=== PATIENT | female | born 1935 | race African-American/Black ===

== ENCOUNTER 2016-09-13 14:41 | Emergency (ER) | payer MEDICARE ==
[2016-09-13 14:59] VITALS: TEMP 96
[2016-09-13] MEDS ORDERED: ACETAMINOPHEN 500 MG TAB PO ONE (16:40)
--- NOTE | 2016-09-13 16:45 | ED.PDOC ---
History of Present Illness - General Chief Complaint: General Stated Complaint: having difficulty walking Time Seen by Provider: 09/13/16 15:00 Source: patient, family Exam Limitations: no limitations Additional Information: PT C/O WORSENING WEAKNESS OF BL LEGS. DENIES ANY PAIN SX. STATES HER LEGS FEEL "HEAVY". SON EXPLAINS SHE HAS PARKINSONS [place] AND HE THINKS IT IS JUST THE PARKINSONS WORSENING. AMBULATES W/ WALKER AT HOME; WHEELCHAIR IN PUBLIC. DENIES ANY RECENT FALLS OR TRAUMA. HAS HOME HEALTH P.T. - History of Present Illness Timing/Duration: constant Severity: moderate Improving Factors: nothing Worsening Factors: nothing Associated Symptoms: denies symptoms Allergies/Adverse Reactions: Allergies Atorvastatin [From Lipitor] Allergy (Verified 03/21/16 07:27) Lincomycin Allergy (Verified 09/13/16 14:59) Penicillin G Allergy (Verified 03/21/16 07:27) Shortness of Breath Home Medications: Ambulatory Orders Losartan Potassium & Hydrochlo [Hyzaar 100-12.5 mg] 100 mg PO DAILY 02/06/14 Metoprolol Tartrate 50 mg PO BIDFD 02/06/14 Clopidogrel Bisulfate [Plavix] 75 mg PO QD 09/12/14 Lovastatin [Mevacor] 20 mg PO BEDTIME 09/12/14 Omeprazole 20 mg PO ACBK 09/12/14 amLODIPine BESYLATE [Norvasc] 5 mg PO DAILY 09/12/14 Hctz 25 mg/Triamterene 37.5 mg [Dyazide-25] 1 ea PO DAILY 09/14/14 Aspirin [Baby Aspirin] 81 mg PO DAILY 05/22/15 Acetaminophen [Tylenol] 650 mg PO Q4H PRN 10/14/15 Furosemide [Lasix] 40 mg PO DAILY PRN 10/14/15 Potassium Chloride [Micro-K] 10 meq PO DAILY PRN 10/14/15 glipiZIDE EXTENDED REL (XL) [Glucotrol XL] 2.5 mg PO QDBK 10/14/15 Spironolactone [Aldactone] 25 mg PO DAILY #30 tab 12/07/15 Ampicillin 500 mg PO TID #30 cap 03/21/16 Polyethylene Glycol 3350 [Miralax] 17 gm PO QDAC #10 pckt 03/21/16 Review of Systems - Review of Systems Constitutional: States: weakness. Denies: chills, fever, malaise EENTM: States: ear pain - OCCAS R EAR, IMPROVED W/ 1 TYLENOL. . Denies: eye pain, throat pain Respiratory: States: no symptoms reported Cardiology: States: no symptoms reported Gastrointestinal/Abdominal: States: no symptoms reported Genitourinary: States: no symptoms reported. Denies: dysuria, frequency, pain Musculoskeletal: Denies: back pain, joint pain, muscle pain, neck pain Skin: States: no symptoms reported Neurological: States: tremors, weakness. Denies: headache, numbness, paresthesia, tingling Endocrine: States: no symptoms reported Hematologic/Lymphatic: States: no symptoms reported All other Systems: Reviewed and Negative Past Medical History (General) - Patient Medical History Hx Seizures: No Hx Stroke: No Hx Dementia: Yes Hx Asthma: No Hx of COPD: No Hx Cardiac Disorders: Yes - PVD Hx Congestive Heart Failure: Yes Hx Pacemaker: No Hx Hypertension: Yes Hx Diabetes: Yes Hx Gastroesophageal Reflux: Yes Hx MRSA: No MRSA Source:: Wound Surgical History: Hysterectomy - Vaccination History Hx Tetanus, Diphtheria Vaccination: No Hx Influenza Vaccination: Yes Hx Pneumococcal Vaccination: Yes - Social History Hx Tobacco Use: No Hx Alcohol Use: No Hx Substance Use: No Hx Substance Use Treatment: No Hx Depression: No Hx Physical Abuse: No Hx Emotional Abuse: No - Female History Patient : No Family Medical History - Family History Father Living Status: Age at (years of age): 58 Cause of : lung CA Hx Family Cancer: Yes - lung Mother Family History: Unknown Living Status: Age at (years of age): 89 Cause of : COPD Hx Family Asthma: No Hx Family Congestive Heart Failure: Yes Age of Onset (years of age): 70 Hx Family Hypertension: No Hx Family Stroke: No Hx Cardiac Disease: Yes Age of Onset (years of age): 70 Hx Family Diabetes: No Hx Family Cancer: No Hx Family;Other: emphysema Physical Exam - Physical Exam General Appearance: Comfortable, Well Developed, Well Hydrated, Well Nourished Eye Exam: bilateral normal Ears, Nose, Throat: hearing grossly normal, normal ENT inspection, normal pharynx Neck: non-tender, supple Respiratory: chest non-tender, lungs clear, normal breath sounds, no respiratory distress Cardiovascular/Chest: normal peripheral pulses, regular rate, rhythm Peripheral Pulses: radial,right: 2+, radial,left: 2+ Gastrointestinal/Abdominal: normal bowel sounds, non tender, soft Back Exam: normal inspection, no CVA tenderness, no vertebral tenderness Extremity: non-tender, normal inspection, other - POS BL RIGIDITY. Neurologic: biomedical engineer II-XII nml as tested, normal mood/affect, oriented x 3, other - POS R RESTING TREMOR. DTR: 3+: Patellar, left, Patellar, right Skin Exam: normal color Lymphatic: no adenopathy Progress - Progress Progress: 09/13/16 16:51 CBC, CMP, UA DO NOT ACCOUNT FOR HER INCREASING MUSCULAR /GAIT WEAKNESS. THERE IS NO CLINICAL EVIDENCE OR HISTORY TO SUGGEST A STROKE; RATHER IT APPEARS TO BE WORSENING OF HER PARKINSONS. SAFE TO DC TO HOME WITH HER SON. F/U W/ HER NEUROLOGIST. 09/13/16 16:53 09/13/16 16:54 Departure - Departure Clinical Impression: Parkinson disease, symptomatic, Weakness of both legs Disposition: Discharge to Home or Self Care Condition: Fair Departure Forms: ED Discharge - Pt. Copy, Patient Portal Self Enrollment Instructions: Parkinson's Disease, David Chi May Improve Balance in Patients with Parkinson Disease Diet: resume usual diet Activity: increase activity as tolerated Home Medications: Ambulatory Orders Losartan Potassium & Hydrochlo [Hyzaar 100-12.5 mg] 100 mg PO DAILY 02/06/14 Metoprolol Tartrate 50 mg PO BIDFD 02/06/14 Clopidogrel Bisulfate [Plavix] 75 mg PO QD 09/12/14 Lovastatin [Mevacor] 20 mg PO BEDTIME 09/12/14 Omeprazole 20 mg PO ACBK 09/12/14 amLODIPine BESYLATE [Norvasc] 5 mg PO DAILY 09/12/14 Hctz 25 mg/Triamterene 37.5 mg [Dyazide-25] 1 ea PO DAILY 09/14/14 Aspirin [Baby Aspirin] 81 mg PO DAILY 05/22/15 Acetaminophen [Tylenol] 650 mg PO Q4H PRN 10/14/15 Furosemide [Lasix] 40 mg PO DAILY PRN 10/14/15 Potassium Chloride [Micro-K] 10 meq PO DAILY PRN 10/14/15 glipiZIDE EXTENDED REL (XL) [Glucotrol XL] 2.5 mg PO QDBK 10/14/15 Spironolactone [Aldactone] 25 mg PO DAILY #30 tab 12/07/15 Ampicillin 500 mg PO TID #30 cap 03/21/16 Polyethylene Glycol 3350 [Miralax] 17 gm PO QDAC #10 pckt 03/21/16 Additional Instructions: Please follow-up with your neurologist, Dr. Anthony, for the Parkinson's disease. Please continue to work with home health physical therapy for muscular training. Try to walk as much as possible in order to maintain your strength.
[2016-09-13 17:17] VITALS: BP 109/41; O2SAT 99
== END 2016-09-13 17:17 | disposition home or self-care (01) ==
LOC: ER 14:41
DX: G20 Parkinson's disease (principal); F02.80 Dementia in other diseases classified elsewhere, unspecified severity, without behavioral disturbance, psychotic disturbance, mood disturbance, and anxiety; M62.81 Muscle weakness (generalized); Z88.0 Allergy status to penicillin; Z88.8 Allergy status to other drugs, medicaments and biological substances; I11.0 Hypertensive heart disease with heart failure; I50.9 Heart failure, unspecified; E11.9 Type 2 diabetes mellitus without complications

== ENCOUNTER 2016-09-29 11:35 | Emergency (ER) | payer MEDICARE ==
[2016-09-29] MEDS ORDERED: NITROGLYCERIN 0.4 MG 25 EA TAB SL ONE ×2 (11:58→12:13)
[2016-09-29] MEDS ORDERED: diltiaZEM DRIP 125 MG in SODIUM CHLORIDE 0.9% 100ML 100 ML IVPB SCH (12:00)
--- NOTE | 2016-09-29 12:07 | ED.PDOC ---
History of Present Illness - General Chief Complaint: Chest Pain/KS Stated Complaint: chest pain Time Seen by Provider: 09/29/16 12:01 Source: patient, RN notes reviewed, EMS notes reviewed Exam Limitations: no limitations - History of Present Illness Initial Comments: EMS stated on waking up one hour ago had onset of pressure type chest pain radiating to left arm and was sob called up ems.Has history of DM and afib. 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 Improving Factors: nothing Worsening Factors: nothing Nitro Today/Relief: 0.4 mg x 1, provided by EMS Aspirin Treatment Today: 325 mg x 1 Associated Symptoms: shortness of breath Allergies/Adverse Reactions: Allergies Atorvastatin [From Lipitor] Allergy (Verified 03/21/16 07:27) Lincomycin Allergy (Verified 09/13/16 14:59) Penicillin G Allergy (Verified 03/21/16 07:27) Shortness of Breath Home Medications: Ambulatory Orders Metoprolol Tartrate 50 mg PO BIDFD 02/06/14 Clopidogrel Bisulfate [Plavix] 75 mg PO QD 09/12/14 Lovastatin [Mevacor] 20 mg PO BEDTIME 09/12/14 Omeprazole 40 mg PO ACBK 09/12/14 Aspirin [Baby Aspirin] 81 mg PO DAILY 05/22/15 Furosemide [Lasix] 40 mg PO DAILY PRN 10/14/15 Potassium Chloride [Micro-K] 10 meq PO DAILY PRN 10/14/15 glipiZIDE EXTENDED REL (XL) [Glucotrol XL] 2.5 mg PO .NOON AND SUPPER 10/14/15 Spironolactone [Aldactone] 25 mg PO DAILY #30 tab 12/07/15 Metformin HCl [Metformin HCl ER] 500 mg PO DAILY 09/29/16 Oxybutynin Chloride 5 mg PO BEDTIME 09/29/16 Rivastigmine Tartrate 3 mg PO BID 09/29/16 Zolpidem Tartrate 10 mg PO BEDTIME 09/29/16 Review of Systems - Review of Systems Constitutional: States: no symptoms reported EENTM: States: other - -shadows only Respiratory: States: see HPI, short of breath Cardiology: States: see HPI Gastrointestinal/Abdominal: States: no symptoms reported Genitourinary: States: no symptoms reported Musculoskeletal: States: no symptoms reported Skin: States: no symptoms reported Neurological: States: other - parkinsons -right ue tremor Endocrine: States: no symptoms reported Hematologic/Lymphatic: States: no symptoms reported Past Medical History (General) - Patient Medical History Hx Seizures: No Hx Stroke: No Hx Dementia: Yes Hx Asthma: No Hx of COPD: No Hx Cardiac Disorders: Yes - PVD Hx Congestive Heart Failure: Yes Hx Pacemaker: No Hx Hypertension: Yes Hx Diabetes: Yes Hx Gastroesophageal Reflux: Yes Hx MRSA: No MRSA Source:: Wound Surgical History: appendectomy, cholecystectomy, other - ,hand-orif - Vaccination History Hx Tetanus, Diphtheria Vaccination: No Hx Influenza Vaccination: Yes Hx Pneumococcal Vaccination: Yes - Social History Hx Tobacco Use: No Hx Alcohol Use: No Hx Substance Use: No Hx Substance Use Treatment: No Hx Depression: No Hx Physical Abuse: No Hx Emotional Abuse: No - Activities of Daily Living Patient Lives Alone: No - sister Grooming Ability: Minimum Assistance Eating (Feeding) Ability: Minimum Assistance Toileting Ability: Minimum Assistance - Female History Patient : No Family Medical History - Family History Father Living Status: Age at (years of age): 58 Cause of : lung CA Hx Cardiac Disease: Yes Hx Family Diabetes: Yes Hx Family Cancer: Yes - lung Hx Family;Other: parkinsons ,dementia Mother Family History: Unknown Living Status: Age at (years of age): 89 Cause of : COPD Hx Family Asthma: No Hx Family Congestive Heart Failure: Yes Age of Onset (years of age): 70 Hx Family Hypertension: No Hx Family Stroke: No Hx Cardiac Disease: Yes Age of Onset (years of age): 70 Hx Family Diabetes: No Hx Family Cancer: No Hx Family;Other: emphysema Physical Exam - Physical Exam General Appearance: Alert, No apparent distress Eyes, Ears, Nose, Throat Exam: normal ENT inspection, TMs normal, pharynx normal , other - eyes-right:can see shadows only;left-counting fingers Neck: non-tender, full range of motion, supple, normal inspection Respiratory: chest non-tender, lungs clear, normal breath sounds, no respiratory distress Cardiovascular/Chest: normal peripheral pulses, no gallop, no JVD, no murmur, tachycardia - 145 vr Gastrointestinal/Abdominal: normal bowel sounds, non tender, soft, no organomegaly Extremity: non-tender, normal inspection, no pedal edema Neurologic: no motor/sensory deficits, alert, normal mood/affect Skin Exam: normal color, warm/dry Lymphatic: no adenopathy Progress - Results/Orders Results/Orders: 09/29/16 12:00 diltiaZEM DRIP [Cardizem Drip] 125 mg Sodium Chloride 0.9% 100Ml [NS (NACL 0.9 %) 100ml] 100 ml IVPB PRN 09/29/16 12:13 Telemetry .ONCE Sodium Chloride 0.9% (Flush) [Saline Flush Syringe] 10 ml IV PRN PRN EKG Stat Pulse Ox Stat 09/29/16 12:15 Sodium Chloride 0.9% 1000ML [Ns 1000 ml] 1,000 ml IVS ONCE Laboratory Results WBC 8.7 K/mm3 (4.8-10.8) 09/29/16 12:30 RBC 3.85 M/mm3 (4.20-5.40) L 09/29/16 12:30 Hgb 11.3 gm/dL (12.0-16.0) L 09/29/16 12:30 Hct 32.9 % (36.0-47.0) L 09/29/16 12:30 MCV 85.6 fl (81.0-99.0) 09/29/16 12:30 MCH 29.3 pg (27.0-31.0) 09/29/16 12:30 MCHC 34.3 g/dL (33.0-37.0) 09/29/16 12:30 RDW 13.2 % (11.5-14.5) 09/29/16 12:30 Plt Count 190 K/mm3 (130-400) 09/29/16 12:30 MPV 7.7 fl (7.40-10.4) 09/29/16 12:30 Absolute Neuts (auto) 5.90 K/uL (1.8-6.8) 09/29/16 12:30 Absolute Lymphs (auto) 1.70 K/uL (1.0-3.4) 09/29/16 12:30 Absolute Monos (auto) 0.70 K/uL (0.2-0.8) 09/29/16 12:30 Absolute Eos (auto) 0.20 K/uL (0.0-0.4) 09/29/16 12:30 Absolute Basos (auto) 0.10 K/uL (0.0-0.1) 09/29/16 12:30 Neutrophils % 68.2 % (42.0-78.0) 09/29/16 12:30 Lymphocytes % 20.1 % (20.0-50.0) 09/29/16 12:30 Monocytes % 8.5 % (2.0-9.0) 09/29/16 12:30 Eosinophils % 2.5 % (1.0-5.0) 09/29/16 12:30 Basophils % 0.7 % (0.0-2.0) 09/29/16 12:30 PT 11.8 SECONDS (9.4-12.5) 09/29/16 12:30 INR 1.040 09/29/16 12:30 PTT (SP) 25.5 SECONDS (25.1-36.5) 09/29/16 12:30 D-Dimer, Quantitative 298 ng/mL (0-230) H* 09/29/16 12:13 Sodium 136 mmol/L (135-145) 09/29/16 12:30 Potassium 4.0 mmol/L (3.6-5.0) 09/29/16 12:30 Chloride 100 mmol/L (101-111) L 09/29/16 12:30 Carbon Dioxide 25 mmol/L (21-31) 09/29/16 12:30 Anion Gap 15.0 (12-18) 09/29/16 12:30 BUN 37 mg/dL (7-18) H 09/29/16 12:30 Creatinine 1.78 mg/dL (0.6-1.3) H 09/29/16 12:30 BUN/Creatinine Ratio 20.8 (10-20) H 09/29/16 12:30 Random Glucose 341 mg/dL (70-105) H 09/29/16 12:30 Serum Osmolality 294.1 mOsm/L (275-295) 09/29/16 12:30 Calcium 8.7 mg/dL (8.4-10.2) 09/29/16 12:30 Magnesium 2.0 mg/dL (1.8-2.5) 09/29/16 12:30 Total Bilirubin 1.1 mg/dL (0.2-1.0) H 09/29/16 12:30 Direct Bilirubin 0.2 mg/dL (0-0.2) 09/29/16 12:30 Indirect Bilirubin 0.9 mg/dL (0.2-0.8) H 09/29/16 12:30 AST 20 IU/L (10-42) 09/29/16 12:30 ALT 14 IU/L (10-60) 09/29/16 12:30 Alkaline Phosphatase 53 IU/L (42-121) 09/29/16 12:30 Creatine Kinase 96 IU/L (26-140) 09/29/16 12:30 CK-MB (CK-2) 4.4 ng/mL (0.0-4.4) 09/29/16 12:30 CK-MB (CK-2) % Not Reportable 09/29/16 12:30 Troponin I < 0.02 ng/mL (0.01-0.05) 09/29/16 12:30 B-Natriuretic Peptide 55.1 pg/ml (0-100) 09/29/16 12:30 Serum Total Protein 6.5 gm/dL (6.4-8.2) 09/29/16 12:30 Albumin 3.4 g/dl (3.2-5.5) 09/29/16 12:30 09/29/16 12:00 diltiaZEM DRIP [Cardizem Drip] 125 mg Sodium Chloride 0.9% 100Ml [NS (NACL 0.9 %) 100ml] 100 ml IVPB PRN 09/29/16 12:13 Telemetry .ONCE Sodium Chloride 0.9% (Flush) [Saline Flush Syringe] 10 ml IV PRN PRN EKG Stat Pulse Ox Stat 09/29/16 12:15 Sodium Chloride 0.9% 1000ML [Ns 1000 ml] 1,000 ml IVS ONCE Laboratory Results WBC 8.7 K/mm3 (4.8-10.8) 09/29/16 12:30 RBC 3.85 M/mm3 (4.20-5.40) L 09/29/16 12:30 Hgb 11.3 gm/dL (12.0-16.0) L 09/29/16 12:30 Hct 32.9 % (36.0-47.0) L 09/29/16 12:30 MCV 85.6 fl (81.0-99.0) 09/29/16 12:30 MCH 29.3 pg (27.0-31.0) 09/29/16 12:30 MCHC 34.3 g/dL (33.0-37.0) 09/29/16 12:30 RDW 13.2 % (11.5-14.5) 09/29/16 12:30 Plt Count 190 K/mm3 (130-400) 09/29/16 12:30 MPV 7.7 fl (7.40-10.4) 09/29/16 12:30 Absolute Neuts (auto) 5.90 K/uL (1.8-6.8) 09/29/16 12:30 Absolute Lymphs (auto) 1.70 K/uL (1.0-3.4) 09/29/16 12:30 Absolute Monos (auto) 0.70 K/uL (0.2-0.8) 09/29/16 12:30 Absolute Eos (auto) 0.20 K/uL (0.0-0.4) 09/29/16 12:30 Absolute Basos (auto) 0.10 K/uL (0.0-0.1) 09/29/16 12:30 Neutrophils % 68.2 % (42.0-78.0) 09/29/16 12:30 Lymphocytes % 20.1 % (20.0-50.0) 09/29/16 12:30 Monocytes % 8.5 % (2.0-9.0) 09/29/16 12:30 Eosinophils % 2.5 % (1.0-5.0) 09/29/16 12:30 Basophils % 0.7 % (0.0-2.0) 09/29/16 12:30 PT 11.8 SECONDS (9.4-12.5) 09/29/16 12:30 INR 1.040 09/29/16 12:30 PTT (SP) 25.5 SECONDS (25.1-36.5) 09/29/16 12:30 D-Dimer, Quantitative 298 ng/mL (0-230) H* 09/29/16 12:13 Sodium 136 mmol/L (135-145) 09/29/16 12:30 Potassium 4.0 mmol/L (3.6-5.0) 09/29/16 12:30 Chloride 100 mmol/L (101-111) L 09/29/16 12:30 Carbon Dioxide 25 mmol/L (21-31) 09/29/16 12:30 Anion Gap 15.0 (12-18) 09/29/16 12:30 BUN 37 mg/dL (7-18) H 09/29/16 12:30 Creatinine 1.78 mg/dL (0.6-1.3) H 09/29/16 12:30 BUN/Creatinine Ratio 20.8 (10-20) H 09/29/16 12:30 Random Glucose 341 mg/dL (70-105) H 09/29/16 12:30 Serum Osmolality 294.1 mOsm/L (275-295) 09/29/16 12:30 Calcium 8.7 mg/dL (8.4-10.2) 09/29/16 12:30 Magnesium 2.0 mg/dL (1.8-2.5) 09/29/16 12:30 Total Bilirubin 1.1 mg/dL (0.2-1.0) H 09/29/16 12:30 Direct Bilirubin 0.2 mg/dL (0-0.2) 09/29/16 12:30 Indirect Bilirubin 0.9 mg/dL (0.2-0.8) H 09/29/16 12:30 AST 20 IU/L (10-42) 09/29/16 12:30 ALT 14 IU/L (10-60) 09/29/16 12:30 Alkaline Phosphatase 53 IU/L (42-121) 09/29/16 12:30 Creatine Kinase 96 IU/L (26-140) 09/29/16 12:30 CK-MB (CK-2) 4.4 ng/mL (0.0-4.4) 09/29/16 12:30 CK-MB (CK-2) % Not Reportable 09/29/16 12:30 Troponin I < 0.02 ng/mL (0.01-0.05) 09/29/16 12:30 B-Natriuretic Peptide 55.1 pg/ml (0-100) 09/29/16 12:30 Serum Total Protein 6.5 gm/dL (6.4-8.2) 09/29/16 12:30 Albumin 3.4 g/dl (3.2-5.5) 09/29/16 12:30 - EKG/XRAY/CT EKG: Atrial, Fibrillation - w/ RVR-140 XRAY: chest - mild cardiomegaly with vascular congestion Departure - Departure Clinical Impression: Atrial fibrillation with RVR, Chest pain, cardiac, Chronic renal insufficiency , stage II (mild), Diabetes mellitus type 2, uncontrolled Time of Disposition: 14:44 - D/W Dr. MENDOZA-Hospitalist SEBASTIAN Disposition: Transfer to Hospital Condition: Fair Departure Forms: ED Discharge - Pt. Copy, Patient Portal Self Enrollment Referrals: John Lafleur III, MD [Primary Care Provider] - 1-2 Weeks Home Medications: Ambulatory Orders Metoprolol Tartrate 50 mg PO BIDFD 02/06/14 Clopidogrel Bisulfate [Plavix] 75 mg PO QD 09/12/14 Lovastatin [Mevacor] 20 mg PO BEDTIME 09/12/14 Omeprazole 40 mg PO ACBK 09/12/14 Aspirin [Baby Aspirin] 81 mg PO DAILY 05/22/15 Furosemide [Lasix] 40 mg PO DAILY PRN 10/14/15 Potassium Chloride [Micro-K] 10 meq PO DAILY PRN 10/14/15 glipiZIDE EXTENDED REL (XL) [Glucotrol XL] 2.5 mg PO .NOON AND SUPPER 10/14/15 Spironolactone [Aldactone] 25 mg PO DAILY #30 tab 12/07/15 Metformin HCl [Metformin HCl ER] 500 mg PO DAILY 09/29/16 Oxybutynin Chloride 5 mg PO BEDTIME 09/29/16 Rivastigmine Tartrate 3 mg PO BID 09/29/16 Zolpidem Tartrate 10 mg PO BEDTIME 09/29/16
[2016-09-29 12:09] VITALS: TEMP 97.4
[2016-09-29] MEDS ORDERED: SODIUM CHLORIDE 0.9% 100ML 100 ML IVPB ONE (12:10)
[2016-09-29] MEDS ORDERED: diltiaZEM DRIP 125 MG/25 ML VIAL IVPB ONE (12:10)
[2016-09-29] MEDS: SODIUM CHLORIDE 0.9% 1000ML 300 ML IVS ONE ×2 (12:11→12:37)
[2016-09-29] MEDS ORDERED: ONDANSETRON INJ 4 MG/2 ML VIAL IV ONE (12:13)
[2016-09-29] MEDS ORDERED: SODIUM CHLORIDE 0.9% (FLUSH) 10 ML SYG IV PRN (12:13)
[2016-09-29] MEDS ORDERED: SODIUM CHLORIDE 0.9% 1000ML 1,000 ML IVS ONE (12:15)
--- NOTE | 2016-09-29 13:10 | RAD ---
Study: Single Frontal View of the Chest. Indication:pain Comparison: December 05, 2015. Impression: Mild cardiomegaly with mild central vascular congestion. Prominence of the main pulmonary artery which can be seen in pulmonary arterial hypertension. Mild elevation left hemidiaphragm. No overt consolidation, pleural effusion or pneumothorax. No acute osseous abnormality. Electronically signed by: Jorge Nguyen MD 09/29/2016 13:08
[2016-09-29] MEDS ORDERED: INSULIN, REG.(HUMAN) 100 U/ML VIAL SUBCU ONE (14:01)
[2016-09-29 15:22] VITALS: BP 93/58; O2SAT 95
== END 2016-09-29 15:21 | disposition short-term general hospital (02) ==
LOC: ER 11:35
DX: R07.9 Chest pain, unspecified (principal); I48.91 Unspecified atrial fibrillation; E11.22 Type 2 diabetes mellitus with diabetic chronic kidney disease; E11.65 Type 2 diabetes mellitus with hyperglycemia; N18.2 Chronic kidney disease, stage 2 (mild); I49.3 Ventricular premature depolarization; F03.90 Unspecified dementia, unspecified severity, without behavioral disturbance, psychotic disturbance, mood disturbance, and anxiety; I13.0 Hypertensive heart and chronic kidney disease with heart failure and stage 1 through stage 4 chronic kidney disease, or unspecified chronic kidney disease; I50.9 Heart failure, unspecified; Z79.899 Other long term (current) drug therapy; Z79.82 Long term (current) use of aspirin
CPT/HCPCS: 71010; 80048; 80076; 82550; 82553; 83880; 84484; 85025; 85379; 85610; 85730; 93005; 96361; 96372; 96374; 96375; 99285; J2405; J7030; J7050

== ENCOUNTER 2016-10-02 11:47 | Emergency (ER) | payer MEDICARE ==
--- NOTE | 2016-10-02 12:44 | ED.PDOC ---
History of Present Illness - General Chief Complaint: General Stated Complaint: weakness, headache Time Seen by Provider: 10/02/16 12:21 Source: patient, EMS notes reviewed - History of Present Illness Initial Comments: H/H WENT TO PT'S HOUSE. REPORTEDLY BP WAS 80'S SYSTOLIC. WHEN EMS ARRIVED, PT'S BP WAS NL. JUST ARRIVED HOME YESTERDAY FROM [place] WHERE SHE WAS HOSPITALIZED FOR AFIB. Severity: mild Improving Factors: nothing, other - RESOLVED SPONTANEOUSLY Worsening Factors: nothing Associated Symptoms: denies symptoms Allergies/Adverse Reactions: Allergies Atorvastatin [From Lipitor] Allergy (Verified 03/21/16 07:27) Lincomycin Allergy (Verified 09/13/16 14:59) Penicillin G Allergy (Verified 03/21/16 07:27) Shortness of Breath Home Medications: Ambulatory Orders Metoprolol Tartrate 50 mg PO BIDFD 02/06/14 Lovastatin [Mevacor] 20 mg PO BEDTIME 09/12/14 Omeprazole 40 mg PO ACBK 09/12/14 Furosemide [Lasix] 40 mg PO DAILY PRN 10/14/15 Potassium Chloride [Micro-K] 10 meq PO DAILY PRN 10/14/15 glipiZIDE EXTENDED REL (XL) [Glucotrol XL] 2.5 mg PO .NOON AND SUPPER 10/14/15 Spironolactone [Aldactone] 25 mg PO DAILY #30 tab 12/07/15 Metformin HCl [Metformin HCl ER] 500 mg PO DAILY 09/29/16 Oxybutynin Chloride 5 mg PO BEDTIME 09/29/16 Rivastigmine Tartrate 3 mg PO BID 09/29/16 Apixaban [Eliquis] 2.5 mg PO BID 10/02/16 Ciprofloxacin [Cipro] 500 mg PO BID 10/02/16 Digoxin 0.125 mg PO DAILY 10/02/16 Review of Systems - Review of Systems Constitutional: Denies: chills, fever EENTM: States: blurred vision, ear pain Respiratory: Denies: cough, short of breath, wheezing Cardiology: Denies: chest pain, palpitations Gastrointestinal/Abdominal: Denies: abdominal pain, diarrhea, nausea, vomiting Genitourinary: States: no symptoms reported Musculoskeletal: States: no symptoms reported Skin: States: no symptoms reported Neurological: States: no symptoms reported Endocrine: States: no symptoms reported Hematologic/Lymphatic: States: no symptoms reported Past Medical History (General) - Patient Medical History Hx Seizures: No Hx Stroke: No Hx Dementia: Yes Hx Asthma: No Hx of COPD: No Hx Cardiac Disorders: Yes - PVD, A fib Hx Congestive Heart Failure: Yes Hx Pacemaker: No Hx Hypertension: Yes Hx Diabetes: Yes Hx Gastroesophageal Reflux: Yes Hx MRSA: No MRSA Source:: Wound - Vaccination History Hx Tetanus, Diphtheria Vaccination: No Hx Influenza Vaccination: Yes Hx Pneumococcal Vaccination: Yes - Social History Hx Tobacco Use: No Hx Alcohol Use: No Hx Substance Use: No Hx Substance Use Treatment: No Hx Depression: No Hx Physical Abuse: No Hx Emotional Abuse: No - Activities of Daily Living Hospice Agency (if applicable):: [facility] - Female History Patient is a Female of Child Bearing Age (10 -59 yrs old): No Patient : No Family Medical History - Family History Father Living Status: Age at (years of age): 58 Cause of : lung CA Hx Cardiac Disease: Yes Hx Family Diabetes: Yes Hx Family Cancer: Yes - lung Hx Family;Other: parkinsons ,dementia Mother Family History: Unknown Living Status: Age at (years of age): 89 Cause of : COPD Hx Family Asthma: No Hx Family Congestive Heart Failure: Yes Age of Onset (years of age): 70 Hx Family Hypertension: No Hx Family Stroke: No Hx Cardiac Disease: Yes Age of Onset (years of age): 70 Hx Family Diabetes: No Hx Family Cancer: No Hx Family;Other: emphysema Physical Exam - Physical Exam General Appearance: Alert, No apparent distress Eye Exam: bilateral normal Ears, Nose, Throat: normal ENT inspection, normal pharynx Neck: non-tender, full range of motion, supple Respiratory: lungs clear, normal breath sounds, no respiratory distress Cardiovascular/Chest: regular rate, rhythm, no edema, no murmur Gastrointestinal/Abdominal: non tender, soft, no organomegaly Back Exam: normal inspection, no CVA tenderness Extremity: normal range of motion, non-tender Neurologic: no motor/sensory deficits, alert Skin Exam: normal color Lymphatic: no adenopathy Progress - Progress Progress: 10/02/16 12:56 BP CURRENTLY NL 10/02/16 14:45 VSS HAVE BEEN STABLE. BP GOOD. FOREST SCIENTIST HAS SEEN PT WILL BE EVALUATED FOR REHAB TOMORROW AT HOME. - EKG/XRAY/CT Comments: RHYTHM STRIP, AFIB RATE 75 Departure - Departure Clinical Impression: DEMENTIA Atrial fibrillation Qualifiers: Atrial fibrillation type: chronic Qualifier Code: (I48.2) Chronic atrial fibrillation Hypertension Qualifiers: Hypertension type: essential hypertension Qualifier Code: (I10) Essential ( primary) hypertension Time of Disposition: 14:50 Disposition: Discharge to Home or Self Care Condition: Good Departure Forms: ED Discharge - Pt. Copy, Patient Portal Self Enrollment Instructions: DI for Hypotension Home Medications: Ambulatory Orders Metoprolol Tartrate 50 mg PO BIDFD 02/06/14 Lovastatin [Mevacor] 20 mg PO BEDTIME 09/12/14 Omeprazole 40 mg PO ACBK 09/12/14 Furosemide [Lasix] 40 mg PO DAILY PRN 10/14/15 Potassium Chloride [Micro-K] 10 meq PO DAILY PRN 10/14/15 glipiZIDE EXTENDED REL (XL) [Glucotrol XL] 2.5 mg PO .NOON AND SUPPER 10/14/15 Spironolactone [Aldactone] 25 mg PO DAILY #30 tab 12/07/15 Metformin HCl [Metformin HCl ER] 500 mg PO DAILY 09/29/16 Oxybutynin Chloride 5 mg PO BEDTIME 09/29/16 Rivastigmine Tartrate 3 mg PO BID 09/29/16 Apixaban [Eliquis] 2.5 mg PO BID 10/02/16 Ciprofloxacin [Cipro] 500 mg PO BID 10/02/16 Digoxin 0.125 mg PO DAILY 10/02/16
[2016-10-02 15:34] VITALS: BP 180/81; TEMP 98; O2SAT 97
== END 2016-10-02 15:05 | disposition home or self-care (01) ==
LOC: ER 11:47
DX: I48.2 Chronic atrial fibrillation (principal); I11.0 Hypertensive heart disease with heart failure; I50.9 Heart failure, unspecified; F03.90 Unspecified dementia, unspecified severity, without behavioral disturbance, psychotic disturbance, mood disturbance, and anxiety; E11.9 Type 2 diabetes mellitus without complications; K21.9 Gastro-esophageal reflux disease without esophagitis; Z88.8 Allergy status to other drugs, medicaments and biological substances; Z88.0 Allergy status to penicillin; Z79.899 Other long term (current) drug therapy

== ENCOUNTER → 2016-11-23 | Outpatient (CLI) | payer MEDICARE | LOC: GMAL 12:05 | PROVIDERS: ATTEND Family Medicine | DX: N39.0 Urinary tract infection, site not specified (principal) ==

== ENCOUNTER 2016-12-02 22:02 | Emergency (ER) | payer MEDICARE ==
--- NOTE | 2016-12-02 22:29 | ED.PDOC ---
History of Present Illness - General Chief Complaint: Chest Pain/DE Stated Complaint: CP/Shoulder pain, headache, neck pain Time Seen by Provider: 12/02/16 22:13 Source: patient Exam Limitations: no limitations - History of Present Illness Initial Comments: Ms. Nidia Delgado 81 y/o female with history of parkinsons disease,paroxysmal afib ,htn dm2 brought by son kendall having neck pains,chest,hip bilateral shoulder pains for the last 2 days she denies history of falls.Stated aching all over. Timing/Duration: other - 2 days ago Severity: moderate Location: central, shoulder, other - hip,neck Activities at Onset: none Prior Chest Pain/Cardiac Workup: echocardiography, other - was sent to [facility] for A.fib with RVR a month ago Improving Factors: nothing Worsening Factors: nothing Aspirin Treatment Today: 81 mg x 1 Associated Symptoms: other - pain all over Allergies/Adverse Reactions: Allergies Atorvastatin [From Lipitor] Allergy (Verified 12/02/16 22:30) Lincomycin Allergy (Verified 12/02/16 22:30) Penicillin G Allergy (Verified 12/02/16 22:30) Shortness of Breath Home Medications: Ambulatory Orders Metoprolol Tartrate 50 mg PO BIDFD 02/06/14 Lovastatin [Mevacor] 20 mg PO BEDTIME 09/12/14 Omeprazole 40 mg PO ACBK 09/12/14 Furosemide [Lasix] 40 mg PO DAILY PRN 10/14/15 Potassium Chloride [Micro-K] 10 meq PO DAILY PRN 10/14/15 glipiZIDE EXTENDED REL (XL) [Glucotrol XL] 2.5 mg PO .NOON AND SUPPER 10/14/15 Spironolactone [Aldactone] 25 mg PO DAILY #30 tab 12/07/15 Metformin HCl [Metformin HCl ER] 500 mg PO DAILY 09/29/16 Oxybutynin Chloride 5 mg PO BEDTIME 09/29/16 Rivastigmine Tartrate 3 mg PO BID 09/29/16 Apixaban [Eliquis] 2.5 mg PO BID 10/02/16 Ciprofloxacin [Cipro] 500 mg PO BID 10/02/16 Digoxin 0.125 mg PO DAILY 10/02/16 Acetamin W/Cod #3 Tab [Tylenol w/CODEINE #3] 1 ea PO TID PRN #20 tab 12/03/16 Review of Systems - Review of Systems Constitutional: States: no symptoms reported EENTM: States: no symptoms reported Respiratory: States: no symptoms reported Cardiology: States: see HPI Gastrointestinal/Abdominal: States: no symptoms reported Genitourinary: States: other - overactive bladder Musculoskeletal: States: see HPI, neck pain Skin: States: no symptoms reported Neurological: States: tremors Endocrine: States: no symptoms reported Hematologic/Lymphatic: States: no symptoms reported Past Medical History (General) - Patient Medical History Hx Seizures: No Hx Stroke: No Hx Dementia: Yes Hx Asthma: No Hx of COPD: Yes Hx Cardiac Disorders: Yes - PVD, A fib Hx Congestive Heart Failure: Yes Hx Pacemaker: No Hx Hypertension: Yes Hx Diabetes: Yes Hx Gastroesophageal Reflux: Yes Hx MRSA: No MRSA Source:: Wound Surgical History: appendectomy, cholecystectomy, other - orif hand - Vaccination History Hx Tetanus, Diphtheria Vaccination: No Hx Influenza Vaccination: Yes Hx Pneumococcal Vaccination: Yes - Social History Hx Tobacco Use: No Hx Alcohol Use: No Hx Substance Use: No Hx Substance Use Treatment: No Hx Depression: No Hx Physical Abuse: No Hx Emotional Abuse: No - Activities of Daily Living Patient Lives Alone: No - lives with sister Grooming Ability: Standby Assistance Eating (Feeding) Ability: Standby Assistance Toileting Ability: Standby Assistance - Female History Patient : No Family Medical History - Family History Father Living Status: Age at (years of age): 58 Cause of : lung CA Hx Cardiac Disease: Yes Hx Family Diabetes: Yes Hx Family Cancer: Yes - lung Hx Family;Other: parkinsons ,dementia Mother Family History: Unknown Living Status: Age at (years of age): 89 Cause of : COPD Hx Family Asthma: No Hx Family Congestive Heart Failure: Yes Age of Onset (years of age): 72 Hx Family Hypertension: No Hx Family Stroke: No Hx Cardiac Disease: Yes Age of Onset (years of age): 72 Hx Family Diabetes: No Hx Family Cancer: No Hx Family;Other: emphysema Physical Exam - Physical Exam General Appearance: Alert, Anxious, No apparent distress Eyes, Ears, Nose, Throat Exam: PERRL/EOMI, normal ENT inspection, TMs normal, pharynx normal Neck: non-tender, supple, normal inspection, limited range of motion - pain Respiratory: chest non-tender, lungs clear, normal breath sounds, no respiratory distress Cardiovascular/Chest: normal peripheral pulses, regular rate, rhythm, no edema, no gallop, no JVD, no murmur Peripheral Pulses: radial,right: 2+, radial,left: 2+ Gastrointestinal/Abdominal: normal bowel sounds, non tender, soft, no organomegaly Extremity: normal range of motion, non-tender, normal inspection, no pedal edema , no calf tenderness Neurologic: no motor/sensory deficits, alert, oriented x 3 Skin Exam: normal color, warm/dry Progress - Results/Orders Results/Orders: 12/02/16 22:29 URINALYSIS Stat 12/02/16 22:30 EKG STAT Laboratory Results WBC 7.5 K/mm3 (4.8-10.8) 12/02/16 23:20 RBC 4.05 M/mm3 (4.20-5.40) L 12/02/16 23:20 Hgb 11.6 gm/dL (12.0-16.0) L 12/02/16 23:20 Hct 34.4 % (36.0-47.0) L 12/02/16 23:20 MCV 85.0 fl (81.0-99.0) 12/02/16 23:20 MCH 28.6 pg (27.0-31.0) 12/02/16 23:20 MCHC 33.6 g/dL (33.0-37.0) 12/02/16 23:20 RDW 13.9 % (11.5-14.5) 12/02/16 23:20 Plt Count 196 K/mm3 (130-400) 12/02/16 23:20 MPV 8.1 fl (7.40-10.4) 12/02/16 23:20 Absolute Neuts (auto) 4.40 K/uL (1.8-6.8) 12/02/16 23:20 Absolute Lymphs (auto) 1.90 K/uL (1.0-3.4) 12/02/16 23:20 Absolute Monos (auto) 0.90 K/uL (0.2-0.8) H 12/02/16 23:20 Absolute Eos (auto) 0.20 K/uL (0.0-0.4) 12/02/16 23:20 Absolute Basos (auto) 0.10 K/uL (0.0-0.1) 12/02/16 23:20 Neutrophils % 59.3 % (42.0-78.0) 12/02/16 23:20 Lymphocytes % 26.0 % (20.0-50.0) 12/02/16 23:20 Monocytes % 11.4 % (2.0-9.0) H 12/02/16 23:20 Eosinophils % 2.3 % (1.0-5.0) 12/02/16 23:20 Basophils % 1.0 % (0.0-2.0) 12/02/16 23:20 PT 11.7 SECONDS (9.4-12.5) 12/02/16 23:20 INR 1.040 12/02/16 23:20 PTT (SP) 18.4 SECONDS (25.1-36.5) L 12/02/16 23:20 D-Dimer, Quantitative 331 ng/mL (0-230) H* 12/02/16 23:20 Sodium 139 mmol/L (135-145) 12/02/16 23:20 Potassium 3.7 mmol/L (3.6-5.0) 12/02/16 23:20 Chloride 104 mmol/L (101-111) 12/02/16 23:20 Carbon Dioxide 28 mmol/L (21-31) 12/02/16 23:20 Anion Gap 10.7 (12-18) L 12/02/16 23:20 BUN 24 mg/dL (7-18) H 12/02/16 23:20 Creatinine 1.21 mg/dL (0.6-1.3) 12/02/16 23:20 BUN/Creatinine Ratio 19.8 (10-20) 12/02/16 23:20 Random Glucose 147 mg/dL (70-105) H 12/02/16 23:20 Serum Osmolality 284.3 mOsm/L (275-295) 12/02/16 23:20 Calcium 8.9 mg/dL (8.4-10.2) 12/02/16 23:20 Magnesium 1.9 mg/dL (1.8-2.5) 12/02/16 23:20 Total Bilirubin 1.1 mg/dL (0.2-1.0) H 12/02/16 23:20 Direct Bilirubin 0.2 mg/dL (0-0.2) 12/02/16 23:20 Indirect Bilirubin 0.9 mg/dL (0.2-0.8) H 12/02/16 23:20 AST 15 IU/L (10-42) 12/02/16 23:20 ALT < 8 IU/L (10-60) L 12/02/16 23:20 Alkaline Phosphatase 52 IU/L (42-121) 12/02/16 23:20 Creatine Kinase 77 IU/L (26-140) 12/02/16 23:20 CK-MB (CK-2) 3.1 ng/mL (0.0-4.4) 12/02/16 23:20 CK-MB (CK-2) % Not Reportable 12/02/16 23:20 Troponin I 0.02 ng/mL (0.01-0.05) 12/02/16 23:20 B-Natriuretic Peptide 56.2 pg/ml (0-100) 12/02/16 23:20 Serum Total Protein 7.0 gm/dL (6.4-8.2) 12/02/16 23:20 Albumin 3.6 g/dl (3.2-5.5) 12/02/16 23:20 Digoxin < 0.3 ng/mL (1.0-2.0) L 12/02/16 23:15 - EKG/XRAY/CT EKG: Sinus, no ST T wave changes Comments: heart rate-71 NSR XRAY: chest - no acute abnormalities noted Departure - Departure Clinical Impression: Paroxysmal a-fib, History of Parkinson's disease Chest pain Qualifiers: Chest pain type: unspecified Qualified Code(s): R07.9 - Chest pain, unspecified Time of Disposition: 00:59 Disposition: Discharge to Home or Self Care Condition: Fair Departure Forms: ED Discharge - Pt. Copy, Patient Portal Self Enrollment Diet: low fat, low cholesterol, low salt diet Referrals: John Lafleur III, MD [Primary Care Provider] - 1-2 Weeks Prescriptions: Acetamin W/Cod #3 Tab [Tylenol w/CODEINE #3] 1 ea PO TID PRN #20 tab PRN Reason: Pain Home Medications: Ambulatory Orders Metoprolol Tartrate 50 mg PO BIDFD 02/06/14 Lovastatin [Mevacor] 20 mg PO BEDTIME 09/12/14 Omeprazole 40 mg PO ACBK 09/12/14 Furosemide [Lasix] 40 mg PO DAILY PRN 10/14/15 Potassium Chloride [Micro-K] 10 meq PO DAILY PRN 10/14/15 glipiZIDE EXTENDED REL (XL) [Glucotrol XL] 2.5 mg PO .NOON AND SUPPER 10/14/15 Spironolactone [Aldactone] 25 mg PO DAILY #30 tab 12/07/15 Metformin HCl [Metformin HCl ER] 500 mg PO DAILY 09/29/16 Oxybutynin Chloride 5 mg PO BEDTIME 09/29/16 Rivastigmine Tartrate 3 mg PO BID 09/29/16 Apixaban [Eliquis] 2.5 mg PO BID 10/02/16 Ciprofloxacin [Cipro] 500 mg PO BID 10/02/16 Digoxin 0.125 mg PO DAILY 10/02/16 Acetamin W/Cod #3 Tab [Tylenol w/CODEINE #3] 1 ea PO TID PRN #20 tab 12/03/16 Additional Instructions: RETURN TO EMERGENCY ROOM NEEDED;FOLLOW UP WITH PRIMARY MD 12/07 16 family to call for appointment
[2016-12-02 22:30] VITALS: TEMP 97.1
--- NOTE | 2016-12-02 23:20 | RAD ---
EXAM DESCRIPTION: XR CERVICAL SPINE 2 - 3 VIEWS CLINICAL HISTORY: pain COMPARISON: None FINDINGS: AP and lateral view of the cervical spine were submitted. The prevertebral soft tissues are within normal limits. There is no acute fracture or subluxation. The cervicothoracic junction is identified and well aligned. There is loss of the normal cervical lordosis. Calcifications at the level of the mid neck compatible with calcifications within the carotid arterial system. IMPRESSION: Loss of the normal cervical lordosis could be secondary to patient's positioning versus spasm. Electronically signed by: Bob Sneed MD 12/02/2016 11:19 PM CDT
--- NOTE | 2016-12-02 23:22 | RAD ---
EXAM DESCRIPTION: Chest,1 View CLINICAL HISTORY: pain COMPARISON: December 04, 2015 FINDINGS: Cardiac silhouette is within normal limits. EKG leads project over the chest. Patient is rotated. There is atherosclerosis. Decreased lung volumes could be secondary to underinflation. Linear opacity in the left lower lung may represent scar versus subsegmental atelectasis. There is no focal parenchymal or pleural disease. There is no acute osseous process visualized. IMPRESSION: No evidence of acute cardiopulmonary disease. Electronically signed by: Bob Sneed MD 12/02/2016 11:21 PM CDT
[2016-12-02] MEDS: HYDROcodone 5MG/APAP 325MG 1 EA TAB PO ONE ×2 (23:44→23:48)
[2016-12-02] MEDS ORDERED: ACETAMINOPHEN W/COD #3 TAB 1 EA TAB PO ONE (23:50)
[2016-12-02] MEDS ORDERED: ACETAMINOPHEN W/COD #3 TAB 1 EA TAB ONE (23:51)
[2016-12-03 01:46] VITALS: BP 155/48; O2SAT 98
== END 2016-12-03 01:33 | disposition home or self-care (01) ==
LOC: ER 22:02
DX: I48.0 Paroxysmal atrial fibrillation (principal); R07.9 Chest pain, unspecified; Z88.0 Allergy status to penicillin; Z88.8 Allergy status to other drugs, medicaments and biological substances; J44.9 Chronic obstructive pulmonary disease, unspecified; G20 Parkinson's disease; F02.80 Dementia in other diseases classified elsewhere, unspecified severity, without behavioral disturbance, psychotic disturbance, mood disturbance, and anxiety; I11.0 Hypertensive heart disease with heart failure; I50.9 Heart failure, unspecified; K21.9 Gastro-esophageal reflux disease without esophagitis; Z79.899 Other long term (current) drug therapy

== ENCOUNTER 2017-01-23 18:33 | Emergency (ER) | payer MEDICARE ==
[2017-01-23 18:51] VITALS: TEMP 98
--- NOTE | 2017-01-23 19:28 | RAD ---
EXAM DESCRIPTION: Abdomen Series CLINICAL HISTORY: 81 years Female, fall with right mid torso pain COMPARISON: None. FINDINGS: Single view of the chest with three views of the abdomen including supine and upright show lungs clear. Heart normal size. Moderately large volume of stool in the colon. No obstruction observed. IMPRESSION: No acute process Electronically signed by: Anders Lester MD 01/23/2017 7:28 PM CDT
--- NOTE | 2017-01-23 19:37 | RAD ---
EXAM DESCRIPTION: Ribs,Right 2 Views CLINICAL HISTORY: 81 years Female, pain right lower ribs COMPARISON: None. FINDINGS: Two portable views of the right side ribs show no rib lesion or fracture. IMPRESSION: Negative Electronically signed by: Anders Lester MD 01/23/2017 7:38 PM CDT
--- NOTE | 2017-01-23 19:51 | ED.PDOC ---
History of Present Illness - General Chief Complaint: Trauma Stated Complaint: "FALL THIS AM, C/O RIGHT SIDED PAIN" Time Seen by Provider: 01/23/17 18:44 Source: patient Exam Limitations: no limitations - History of Present Illness Initial Comments: the patient is a 81-year-old Afro-[place] female presenting to the emergency room secondary to right lateral lower torso pain. Pain started after a fall this morning. She did not tell her family about the fall until this afternoon. No difficulty with breathing. She is uncomfortable to palpation of her lower rib cage on the right but I see no bruising and there is no crepitus. No rebound or peritoneal signs. No pain with movement of the right hip or pressure on the pelvis. She does have long-standingdifficulties with getting around. She has had falls in the past. She is feeling otherwise at her baseline. She is not having any pain in her central back. Timing/Duration: 4-6 hours Severity: moderate Improving Factors: immobilization Worsening Factors: movement Associated Symptoms: denies symptoms Allergies/Adverse Reactions: Allergies Atorvastatin [From Lipitor] Allergy (Verified 01/23/17 18:43) Lincomycin Allergy (Verified 01/23/17 18:43) Penicillin G Allergy (Verified 01/23/17 18:43) Shortness of Breath Home Medications: Ambulatory Orders Metoprolol Tartrate 50 mg PO BIDFD 02/06/14 Lovastatin [Mevacor] 20 mg PO BEDTIME 09/12/14 Omeprazole 40 mg PO ACBK 09/12/14 Furosemide [Lasix] 40 mg PO DAILY PRN 10/14/15 Potassium Chloride [Micro-K] 10 meq PO DAILY PRN 10/14/15 glipiZIDE EXTENDED REL (XL) [Glucotrol XL] 2.5 mg PO .NOON AND SUPPER 10/14/15 Spironolactone [Aldactone] 25 mg PO DAILY #30 tab 12/07/15 Metformin HCl [Metformin HCl ER] 500 mg PO DAILY 09/29/16 Oxybutynin Chloride 5 mg PO BEDTIME 09/29/16 Rivastigmine Tartrate 3 mg PO BID 09/29/16 Apixaban [Eliquis] 2.5 mg PO BID 10/02/16 Ciprofloxacin [Cipro] 500 mg PO BID 10/02/16 Digoxin 0.125 mg PO DAILY 10/02/16 Acetamin W/Cod #3 Tab [Tylenol w/CODEINE #3] 1 ea PO TID PRN #20 tab 12/03/16 Kmbppodjmossp-Mriq-Keldvskcqk [Fioricet] 1 ea PO Q8H PRN #21 tab 01/23/17 Review of Systems - Review of Systems Review of Systems: 01/23/17 19:51 for changes from her baseline: 01/23/17 19:51 Constitutional: States: no symptoms reported EENTM: States: no symptoms reported Respiratory: States: no symptoms reported Cardiology: States: no symptoms reported, chest pain Gastrointestinal/Abdominal: States: no symptoms reported Genitourinary: States: no symptoms reported Musculoskeletal: States: see HPI Skin: States: no symptoms reported Neurological: States: no symptoms reported Endocrine: States: no symptoms reported All other Systems: No Change from Baseline Past Medical History (General) - Patient Medical History Hx Seizures: No Hx Stroke: No Hx Dementia: Yes Hx Asthma: No Hx of COPD: Yes Hx Cardiac Disorders: Yes Hx Congestive Heart Failure: No Hx Pacemaker: No Hx Hypertension: Yes Hx Thyroid Disease: No Hx Diabetes: No Hx Gastroesophageal Reflux: No Hx Renal Disease: No Hx Cancer: No Hx of HIV: No Hx Hepatitis C: No Hx MRSA: No MRSA Source:: Wound - Vaccination History Hx Tetanus, Diphtheria Vaccination: Yes Hx Influenza Vaccination: Yes Hx Pneumococcal Vaccination: Yes Immunizations Up to Date: Yes - Social History Hx Tobacco Use: No Hx Chewing Tobacco Use: No Hx Alcohol Use: No Hx Substance Use: No Hx Substance Use Treatment: No Hx Depression: No Feels Threatened In Home Enviroment: No Feels Threatened In a Relationship: No Hx Physical Abuse: No Hx Emotional Abuse: No Hx Suspected Abuse: No - Female History Patient is a Female of Child Bearing Age (10 -59 yrs old): No Patient : No Family Medical History - Family History Father Living Status: Age at (years of age): 58 Cause of : lung CA Hx Cardiac Disease: Yes Hx Family Diabetes: Yes Hx Family Cancer: Yes - lung Hx Family;Other: parkinsons ,dementia Mother Family History: Unknown Living Status: Age at (years of age): 89 Cause of : COPD Hx Family Asthma: No Hx Family Congestive Heart Failure: Yes Age of Onset (years of age): 70 Hx Family Hypertension: No Hx Family Stroke: No Hx Cardiac Disease: Yes Age of Onset (years of age): 70 Hx Family Diabetes: No Hx Family Cancer: No Hx Family;Other: emphysema Physical Exam - Physical Exam General Appearance: Alert, Comfortable, No apparent distress Ears, Nose, Throat: normal ENT inspection - poor dentition. Hearing is slightly decreased bilaterally. Neck: non-tender, full range of motion Respiratory: lungs clear, normal breath sounds, no respiratory distress, no accessory muscle use, other - he does have right lateral lower chest wall discomfort palpation. No crepitus. No evidence of subcutaneous emphysema. Cardiovascular/Chest: normal peripheral pulses, no edema Peripheral Pulses: radial,right: 2+, radial,left: 2+, dorsalis pedis,right: 2+, dorsalis pedis,left: 2+ Gastrointestinal/Abdominal: soft, other - right upper quadrant mild discomfort palpation. No obvious palpable mass. 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 This appears to be musculoskeletal pain after a fall this morning. X-ray showed no evidence of fracture and lab work appears reassuring. Obviously fall precautions need to be taken. She does need to take big deep breaths to prevent pneumonia formation. ER warnings were given. She should follow-up with her primary care doctor next week. - Results/Orders Results/Orders: Laboratory Tests 01/23/17 01/23/17 01/23/17 19:05 19:05 19:05 WBC 8.7 RBC 4.27 Hgb 12.2 Hct 35.4 L MCV 83.0 MCH 28.5 MCHC 34.4 RDW 13.9 Plt Count 197 MPV 7.7 Absolute Neuts (auto) 5.80 Absolute Lymphs (auto) 1.90 Absolute Monos (auto) 0.80 Absolute Eos (auto) 0.20 Absolute Basos (auto) 0.10 Neutrophils % 65.9 Lymphocytes % 21.7 Monocytes % 9.2 H Eosinophils % 2.2 Basophils % 1.0 PT 11.9 INR 1.050 PTT (SP) 25.4 Sodium 141 Potassium 3.9 Chloride 108 Carbon Dioxide 27 Anion Gap 9.9 L BUN 29 H Creatinine 1.15 BUN/Creatinine Ratio 25.2 H Random Glucose 133 H Serum Osmolality 289.0 Calcium 9.0 Total Bilirubin 0.9 AST 17 ALT 12 Alkaline Phosphatase 47 Serum Total Protein 7.2 Albumin 3.7 Globulin 3.5 Albumin/Globulin Ratio 1.1 right rib series and acute abdominal series show no evidence of fracture or dislocation. No pneumothorax. She does have some constipation. - EKG/XRAY/CT CT Ordered: No CT Interpretation Call Back: No Departure - Departure Clinical Impression: Rib pain on right side, Fall at home Disposition: Discharge to Home or Self Care Condition: Fair Departure Forms: ED Discharge - Pt. Copy, Patient Portal Self Enrollment Diet: diabetic diet Activity: increase activity as tolerated Referrals: John Lafleur III, MD [Primary Care Provider] - 1-2 Weeks Prescriptions: Eolehegslywvl-Vysk-Xrhsqtujxu [Fioricet] 1 ea PO Q8H PRN #21 tab PRN Reason: Pain Home Medications: Ambulatory Orders Metoprolol Tartrate 50 mg PO BIDFD 02/06/14 Lovastatin [Mevacor] 20 mg PO BEDTIME 09/12/14 Omeprazole 40 mg PO ACBK 09/12/14 Furosemide [Lasix] 40 mg PO DAILY PRN 10/14/15 Potassium Chloride [Micro-K] 10 meq PO DAILY PRN 10/14/15 glipiZIDE EXTENDED REL (XL) [Glucotrol XL] 2.5 mg PO .NOON AND SUPPER 10/14/15 Spironolactone [Aldactone] 25 mg PO DAILY #30 tab 12/07/15 Metformin HCl [Metformin HCl ER] 500 mg PO DAILY 09/29/16 Oxybutynin Chloride 5 mg PO BEDTIME 09/29/16 Rivastigmine Tartrate 3 mg PO BID 09/29/16 Apixaban [Eliquis] 2.5 mg PO BID 10/02/16 Ciprofloxacin [Cipro] 500 mg PO BID 10/02/16 Digoxin 0.125 mg PO DAILY 10/02/16 Acetamin W/Cod #3 Tab [Tylenol w/CODEINE #3] 1 ea PO TID PRN #20 tab 12/03/16 Dvewckpcfmtll-Ugsa-Rlcapgypbi [Fioricet] 1 ea PO Q8H PRN #21 tab 01/23/17 Additional Instructions: the patient is a 81-year-old -[place] female presenting to the emergency room secondary to right mid torso pain. This appears to be musculoskeletal pain after a fall this morning. X-ray showed no evidence of fracture and lab work appears reassuring. Obviously fall precautions need to be taken. She does need to take big deep breaths to prevent pneumonia formation. ER warnings were given. She should follow-up with her primary care doctor next week.
[2017-01-23] MEDS ORDERED: ACETAMINOPHEN-CAFF-BUTALBITAL 1 EA TAB PO SCH (20:00)
[2017-01-23 20:28] VITALS: BP 152/72; O2SAT 94
== END 2017-01-23 20:13 | disposition home or self-care (01) ==
LOC: ER 18:33
DX: R07.81 Pleurodynia (principal); J44.9 Chronic obstructive pulmonary disease, unspecified; I10 Essential (primary) hypertension; Z79.899 Other long term (current) drug therapy; Z88.0 Allergy status to penicillin; Z88.8 Allergy status to other drugs, medicaments and biological substances; W19.XXXA Unspecified fall, initial encounter; Y92.9 Unspecified place or not applicable

== ENCOUNTER 2017-06-06 17:51 | Observation (INO) | payer MEDICARE ==
[2017-06-06] MEDS ORDERED: HYDROcodone 5MG/APAP 325MG 1 EA TAB PO ONE (17:56)
--- NOTE | 2017-06-06 18:20 | RAD ---
EXAM DESCRIPTION: Chest,1 View CLINICAL HISTORY: 81 years Female fall with pain COMPARISON: 12/02/2016 FINDINGS: The cardiomediastinal silhouette appears unremarkable. No consolidating infiltrates or pleural effusions. No pneumothorax. Right hilum appears prominent but unchanged from the previous study. There is also some increased density in the medial right lung base suggesting atelectasis. No new area of infiltrate is noted. IMPRESSION: Prominent right hilum which appears unchanged Right basilar atelectasis Fracture of the distal right clavicle which is partially obscured by the overlying annotations Electronically signed by: Nikki Wright 06/06/2017 6:19 PM CDT
--- NOTE | 2017-06-06 18:21 | RAD ---
EXAM DESCRIPTION: Shoulder,Right 2 or More Views CLINICAL HISTORY: 81 years Female fall with pain COMPARISON: None. TECHNIQUE: RIGHT shoulder two view FINDINGS: There is a fracture of the distal right clavicle which is displaced. Moderate degenerative changes at the AC joint. Glenohumeral joint appears intact. Acromioclavicular joint appears maintained. IMPRESSION: Fracture of the distal right clavicle with inferior displacement of the distal fracture fragment Electronically signed by: Nikki Wright 06/06/2017 6:20 PM CDT
--- NOTE | 2017-06-06 18:22 | RAD ---
EXAM DESCRIPTION: Clavicle,Right CLINICAL HISTORY: 81 years Female fall with pain COMPARISON: None. TECHNIQUE: RIGHT clavicle, 2 view FINDINGS: There is a fracture of the distal right clavicle which is displaced. Moderate degenerative changes at the AC joint. Glenohumeral joint appears intact. Acromioclavicular joint appears maintained. IMPRESSION: Fracture of the distal right clavicle with inferior displacement of the distal fracture fragment Electronically signed by: Nikki Wright 06/06/2017 6:21 PM CDT
--- NOTE | 2017-06-06 18:39 | ED.PDOC ---
History of Present Illness - General Chief Complaint: Upper Extremity Injury Stated Complaint: Fell and injured R shoulder and head Time Seen by Provider: 06/06/17 17:52 Source: patient, EMS notes reviewed, family Exam Limitations: no limitations - History of Present Illness Initial Comments: The patient is a 81-year-old Afro-[place] female presenting to the emergency room after a fall at home. The patient apparently normally has a very difficult time getting around even with her walker secondary to visual problems , balance problems and severe neuropathy. The patient also apparently does have some significant dementia. The patient tripped and fell backwards and her caregiver was able to at least partially slow the fall. She developed back her head and does have a very small contusion there. No altered mental status. No loss of consciousness. She is not having any neck pain but she is having pain over her right clavicle. She does appear to be neurovascularly intact in the right upper extremity. She is alert and talkative. She does however periodically seemed to get a little confused. No evidence of any other significant current trauma. No real neck pain. She does have a very mild area of erythema over the coccyx. She also has a chronic healing ulcer over her left heel and a small area over the right lateral foot. Timing/Duration: momentarily Severity: moderate Improving Factors: immobilization Worsening Factors: movement Associated Symptoms: denies symptoms Allergies/Adverse Reactions: Allergies Atorvastatin [From Lipitor] Allergy (Verified 06/06/17 18:08) Lincomycin Allergy (Verified 06/06/17 18:08) Penicillin G Allergy (Verified 06/06/17 18:08) Shortness of Breath Home Medications: Ambulatory Orders Metoprolol Tartrate 50 mg PO BIDFD 02/06/14 Lovastatin [Mevacor] 20 mg PO BEDTIME 09/12/14 Omeprazole 40 mg PO ACBK 09/12/14 Furosemide [Lasix] 40 mg PO DAILY PRN 10/14/15 Potassium Chloride [Micro-K] 10 meq PO DAILY PRN 10/14/15 glipiZIDE EXTENDED REL (XL) [Glucotrol XL] 2.5 mg PO .NOON AND SUPPER 10/14/15 Spironolactone [Aldactone] 25 mg PO DAILY #30 tab 12/07/15 Metformin HCl [Metformin HCl ER] 500 mg PO DAILY 09/29/16 Oxybutynin Chloride 5 mg PO BEDTIME 09/29/16 Rivastigmine Tartrate 3 mg PO BID 09/29/16 Apixaban [Eliquis] 2.5 mg PO BID 10/02/16 Ciprofloxacin [Cipro] 500 mg PO BID 10/02/16 Digoxin 0.125 mg PO DAILY 10/02/16 Acetamin W/Cod #3 Tab [Tylenol w/CODEINE #3] 1 ea PO TID PRN #20 tab 12/03/16 Hgrkjkxmslplp-Izfj-Dcfeuufogc [Fioricet] 1 ea PO Q8H PRN #21 tab 01/23/17 Review of Systems - Review of Systems Review of Systems: 06/06/17 18:40 for new symptoms: Constitutional: States: no symptoms reported EENTM: States: no symptoms reported - chronic changes only Respiratory: States: no symptoms reported Cardiology: States: no symptoms reported Gastrointestinal/Abdominal: States: no symptoms reported Genitourinary: States: no symptoms reported Musculoskeletal: States: other - see above Skin: States: no symptoms reported - hronic changes Neurological: States: see HPI - chronic changes, anxiety Endocrine: States: no symptoms reported All other Systems: No Change from Baseline Past Medical History (General) - Patient Medical History Hx Seizures: No Hx Stroke: No Hx Dementia: Yes Hx Asthma: No Hx of COPD: No Hx Cardiac Disorders: Yes Hx Congestive Heart Failure: No Hx Pacemaker: No Hx Hypertension: Yes Hx Thyroid Disease: No Hx Diabetes: Yes Hx Gastroesophageal Reflux: Yes Hx Renal Disease: No Hx Cancer: No Hx of HIV: No Hx Hepatitis C: No Hx MRSA: No MRSA Source:: Wound - Vaccination History Hx Tetanus, Diphtheria Vaccination: No Hx Influenza Vaccination: No Hx Pneumococcal Vaccination: No - Social History Hx Tobacco Use: No Hx Chewing Tobacco Use: No Hx Alcohol Use: No Hx Substance Use: No Hx Substance Use Treatment: No Hx Depression: No Feels Threatened In Home Enviroment: No Feels Threatened In a Relationship: No Hx Physical Abuse: No Hx Emotional Abuse: No Hx Suspected Abuse: No - Female History Patient is a Female of Child Bearing Age (10 -59 yrs old): No Patient : No Family Medical History - Family History Father Living Status: Age at (years of age): 58 Cause of : lung CA Hx Cardiac Disease: Yes Hx Family Diabetes: Yes Hx Family Cancer: Yes - lung Hx Family;Other: parkinsons ,dementia Mother Family History: Unknown Living Status: Age at (years of age): 89 Cause of : COPD Hx Family Asthma: No Hx Family Congestive Heart Failure: Yes Age of Onset (years of age): 70 Hx Family Hypertension: No Hx Family Stroke: No Hx Cardiac Disease: Yes Age of Onset (years of age): 70 Hx Family Diabetes: No Hx Family Cancer: No Hx Family;Other: emphysema Physical Exam - Physical Exam General Appearance: Alert, Anxious, No apparent distress Ears, Nose, Throat: hearing grossly normal - mildly decreased bilaterally, normal pharynx Neck: non-tender, supple Respiratory: lungs clear, normal breath sounds, no respiratory distress, no accessory muscle use Cardiovascular/Chest: normal peripheral pulses, no edema, other - regular rate Peripheral Pulses: radial,right: 2+, radial,left: 2+ Gastrointestinal/Abdominal: non tender, soft Rectal Exam: deferred Extremity: no pedal edema, other - chronic limitations due to osteoarthritis. Neurologic: alert, normal mood/affect - mildly anxious Skin Exam: normal color - except as per history of present illness. Comments: Vital Signs - 24 hr 06/06/17 18:10 Temperature 97.6 F Pulse Rate [L 79 Arm] Respiratory 20 Rate Blood Pressure 145/65 [L Arm] O2 Sat by Pulse 97 Oximetry Progress - Progress Progress: 06/06/17 18:42 the patient is a 81-year-old female presenting after a fall at home with a right clavicle fracture. Secondary to her baseline difficulties with getting around the patient is unable to perform her ADLs at this time. The patient will be admitted for PT evaluation and pain control. Baseline labs have been ordered. The patient will likely need inpatient rehabilitation to regain functional status. - Results/Orders Results/Orders: x-rays of the chest, shoulder and clavicle on the right indicate a distal third clavicle fracture. No evidence of pneumothorax. She does have mild atelectasis in the right midlung. Lab work is pending at this time. - EKG/XRAY/CT CT Ordered: No CT Interpretation Call Back: No Departure - Departure Clinical Impression: Fracture, clavicle closed, shaft Qualifiers: Encounter type: initial encounter Fracture alignment: displaced Laterality: right Qualified Code(s): S42.021A - Displaced fracture of shaft of right clavicle, initial encounter for closed fracture Disposition: Admit Patient Referrals: John Lafleur III, MD [Primary Care Provider] - 1-2 Weeks Home Medications: Ambulatory Orders Metoprolol Tartrate 50 mg PO BIDFD 02/06/14 Lovastatin [Mevacor] 20 mg PO BEDTIME 09/12/14 Omeprazole 40 mg PO ACBK 09/12/14 Furosemide [Lasix] 40 mg PO DAILY PRN 10/14/15 Potassium Chloride [Micro-K] 10 meq PO DAILY PRN 10/14/15 glipiZIDE EXTENDED REL (XL) [Glucotrol XL] 2.5 mg PO .NOON AND SUPPER 10/14/15 Spironolactone [Aldactone] 25 mg PO DAILY #30 tab 12/07/15 Metformin HCl [Metformin HCl ER] 500 mg PO DAILY 09/29/16 Oxybutynin Chloride 5 mg PO BEDTIME 09/29/16 Rivastigmine Tartrate 3 mg PO BID 09/29/16 Apixaban [Eliquis] 2.5 mg PO BID 10/02/16 Ciprofloxacin [Cipro] 500 mg PO BID 10/02/16 Digoxin 0.125 mg PO DAILY 10/02/16 Acetamin W/Cod #3 Tab [Tylenol w/CODEINE #3] 1 ea PO TID PRN #20 tab 12/03/16 Axumltcqirrlc-Gxci-Hpsvpkrwmr [Fioricet] 1 ea PO Q8H PRN #21 tab 01/23/17 Decision To Admit - Decistion To Admit Decision to Admit Reason: Accidental Injury Decision to Admit Date: 06/06/17 Decision to Admit Time: 18:43
--- NOTE | 2017-06-06 19:31 | HP ---
SUPERVISING PHYSICIAN: Young Stockton MD CHIEF COMPLAINT: Right upper extremity injury. HISTORY OF PRESENT ILLNESS: This is a 81 year-old female patient that came to the Emergency Room after the fell at home. She usually has a difficult time getting around and is mostly wheelchair bound and occasionally uses her walker. She also has some visual imbalance problems we well as neuropathy. She also has some significant dementia. It was reported to the Emergency Room that she tripped and fell backwards and her caregiver was at least partially able to break the fall. There was no loss of consciousness. She had no altered mental status or change in mental status. She did come in complaining of her right shoulder hurting. The shoulder x-ray per radiology interpretation shows fracture of the distal right clavicle with inferior displacement of the distal fracture fragment. Her chest x-ray per radiology interpretation shows primary right hilum which appears unchanged with right basilar atelectasis. Her electrolytes were basically within normal limits. Her BUN was 34 and her creatinine 1.23. Liver enzymes were within normal limits. WBC 9.2 and hemoglobin 11.8 and hematocrit 34. They were unable to get a urine specimen. It was also reported that she lives with her son and he is out of town for today and I was called for admission to place the patient in observation and hopefully get her into q rehabilitation facility tomorrow. PAST MEDICAL HISTORY: 1. Carotid artery stenosis. 2. Hyperlipidemia. 3. Hypertension. 4. PVD. 5. Dependent diabetes mellitus type 2. 6. Dementia. 7. Iron-deficiency anemia. 8. 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 9. History of atrial fibrillation. 10. Myocardial infarction in May of 2015. PAST SURGICAL HISTORY: 1. , 2. Hysterectomy. 3. Appendectomy. 4. Right cataract removal. 5. Right carpal tunnel release. 6. Stenting to the right superficial femoral artery. CURRENT MEDICATIONS: Per the EMR and awaiting verification. ALLERGIES: ATORVASTATIN, VANCOMYCIN, PENICILLIN. FAMILY HISTORY: Positive for cancer, alcoholism, cerebral palsy, diabetes mellitus,coronary artery disease and hypertension. SOCIAL HISTORY: She is retired. She lives with her son. She has 4 children. She does not use tobacco, alcohol or illicit drugs. REVIEW OF SYSTEMS: Unable to obtain due to patient's mental status. PHYSICAL EXAMINATION: VITAL SIGNS: She is afebrile. Heart rate 76, blood pressure 148/89, respiratory rate 16. Her 02 saturation is 99% on room air. GENERAL: This is a 81 year-old female patient who is lying in her hospital bed. She is in no acute distress. HEENT: Normocephalic and atraumatic. Oropharynx is clear. NECK: Supple without mass. CHEST: Clear to auscultation bilaterally, somewhat diminished at the bases. There is equal rise and fall of the chest with inspiration and expiration. CARDIOVASCULAR: Slightly irregular rhythm, regular rate. ABDOMEN: Soft, nondistended, non-tender. Bowel sounds are positive. EXTREMITIES: No cyanosis, clubbing, or edema but she does have some tenderness along the right upper shoulder and there is mild swelling to the clavicle. She has a sling in place. NEUROLOGIC: She is alert and oriented and oriented to person only. LABORATORY AND FILMS: As per the history of present illness. ASSESSMENT: 1. Right clavicular fracture after same level fall. 2. Dementia. 3. Hypertension. 4. Diabetes mellitus type 2. 5. Coronary artery stenosis. 6. History of atrial fibrillation. 7. History of frequent urinary tract infections. 8. PVD. PLAN: We will place the patient in observation. I have restarted her ramiro medications. I have also consulted [facility] for possible placement in a rehabilitation facility the next day or so. I have not consulted Dr. Stephen, orthopedic surgeon, as I am not sure that he would do anything at this time but he may need to be consulted as well as physical therapy may need to be consulted sometime tomorrow. I have ordered sliding scale insulin and we will place her on the chief deputy court clerk. Otherwise, we will continue to monitor the patient closely and followup as needed. Dr. Stockton is the collaborating physician available for consultation. #[id number] [facility]
[2017-06-06] MEDS ORDERED: SODIUM CHLORIDE 0.9% (FLUSH) 10 ML SYG IV PRN (21:27)
[2017-06-06] MEDS ORDERED: IV SET AND CAP CHANGE INJ INJ SCH (21:30)
[2017-06-06] MEDS ORDERED: HALOPERIDOL TAB 1 MG TAB PO SCH ×2 (21:34→22:54)
[2017-06-06] MEDS ORDERED: GLUCAGON INJ 1 MG VIAL SUBCU PRN (21:36)
[2017-06-06] MEDS ORDERED: DEXTROSE 50% 25 GM/50 ML SYG IV PRN (21:36)
[2017-06-06] MEDS ORDERED: HALOPERIDOL TAB 1 MG TAB ONE (22:50)
[2017-06-06] MEDS: METOPROLOL TARTRATE 50 MG TAB PO SCH (22:59)
[2017-06-06] MEDS ORDERED: HALOPERIDOL TAB 5MG PO ONE (23:16)
[2017-06-07] MEDS: HYDROcodone 5MG/APAP 325MG 1 EA TAB PO PRN ×4 (01:37→20:42)
[2017-06-07] MEDS: INSULIN LISPRO 100 UNITS/ML PEN SUBCU SCH ×4 (07:16→20:53)
[2017-06-07] MEDS ORDERED: METOPROLOL TARTRATE 25 MG TAB ONE (07:25)
[2017-06-07] MEDS ORDERED: OMEPRAZOLE CAP 20 MG CAP PO SCH (09:00)
[2017-06-07] MEDS: CLOPIDOGREL 75 MG TAB PO SCH (09:10)
[2017-06-07] MEDS: metFORMIN XR 500 MG TAB.ER.24 PO SCH ×2 (09:10→09:48)
[2017-06-07] MEDS: METOPROLOL TARTRATE 50 MG TAB PO SCH ×3 (10:00→17:35)
[2017-06-07] MEDS: SPIRONOLACTONE 25 MG TAB PO SCH (10:32)
[2017-06-07] MEDS: SODIUM CHLORIDE 0.9% 1000ML 1,000 ML IVS PRN ×2 (11:34→22:02)
--- NOTE | 2017-06-07 11:42 | PN ---
DATE: 06/07/17 SUBJECTIVE: The patient is a 81-year-old black female who came in yesterday evening after falling at home. The patient tends to talk with her eyes closed, but she is able to open her eyes and look around. She is fairly alert, though a degree of confusion is evident. She is quire weak. She lives at home I believe with her son and Social Service is assisting with eventual placement in a rehabilitation hospital such as [facility] because of the patient's significant fall risk and need for rehabilitation and strengthening. The patient has fallen and struck the floor and has suffered a fairly significant displaced right mid-shaft clavicular fracture being treated with a sling. She is also encouraged to pull her shoulders back as best she can while in the sling to assist with the proper healing of the clavicle fracture. Appetite is fair. OBJECTIVE: VITAL SIGNS: Afebrile. Pulse 65. Blood pressure 119/69. Room air saturation 97%. Weight 71.5 kg. LUNGS: Generally clear. HEART: Regular. EXTREMITIES: Right arm is in a sling with a support strap in place. This is to help prevent significant malpositioning of her shoulder as it tries to heal conservatively. Tenderness is noted with mild deformity in the region of the mid clavicle on the right. ABDOMEN: Otherwise soft. LABORATORY: White count 9,200 with 71% neutrophils, hemoglobin 11.8. Chemistries show BUN 34, potassium 4.8, creatinine 1.23, glucose 108. Liver enzymes and albumin normal. Await urinalysis. ASSESSMENT: 1. Acute fall from upright position, probably secondary to dizziness with the patient not exactly knowing how she fell. 2. Acute midshaft fracture with misalignment of the right clavicle. 3. Significant disability and inability to safely care for herself with the patient at increased fall risk. 4. Chronic dementia with the patient somewhat confused. 5. History of hypertension. 6. History of diabetes mellitus, on oral therapy. 7. History of coronary artery stenosis. 8. History of chronic atrial fibrillation. 9. History of frequent urinary tract infections. 10. History of peripheral vascular disease. PLAN: Social Service is working with the son in an effort to find out how to best approach her continued rehabilitation and strengthening and reducing her fall risk. At this time, the family is requesting possible transfer to [facility] in [place] for continued rehab and then to return home when safer. Continue with the sling and conservative treatment options. Further evaluation and discussion with the family when they arrive in the hospital will continue today. #[id number] [facility]
[2017-06-07] MEDS: glipiZIDE EXTENDED REL (XL) 2.5 MG TAB PO SCH ×3 (19:00→21:47)
[2017-06-07] MEDS: PRAVASTATIN SODIUM 20 MG TAB PO SCH (20:40)
[2017-06-07] MEDS: OXYBUTYNIN CL 5 MG TAB PO SCH (20:41)
[2017-06-07] MEDS: HALOPERIDOL TAB 1 MG TAB PO SCH (20:41)
[2017-06-07] MEDS: ZOLPIDEM TARTRATE 10 MG TAB PO SCH (20:42)
[2017-06-07] MEDS ORDERED: LOVASTATIN 20 MG PO SCH (21:00)
[2017-06-07] MEDS ORDERED: levoFLOXacin 500 MG TAB PO SCH (23:30)
[2017-06-08] MEDS: HYDROcodone 5MG/APAP 325MG 1 EA TAB PO PRN ×2 (06:14→14:22)
[2017-06-08] MEDS: OMEPRAZOLE CAP 20 MG CAP PO SCH (06:14)
[2017-06-08] MEDS: METOPROLOL TARTRATE 50 MG TAB PO SCH ×2 (07:39→18:09)
[2017-06-08] MEDS: INSULIN LISPRO 100 UNITS/ML PEN SUBCU SCH ×4 (07:39→21:00)
[2017-06-08] MEDS: metFORMIN XR 500 MG TAB.ER.24 PO SCH (07:39)
[2017-06-08] MEDS: SODIUM CHLORIDE 0.9% 1000ML 1,000 ML IVS PRN ×2 (07:42→21:56)
[2017-06-08] MEDS: CLOPIDOGREL 75 MG TAB PO SCH (09:47)
[2017-06-08] MEDS: glipiZIDE EXTENDED REL (XL) 2.5 MG TAB PO SCH ×2 (12:07→18:09)
--- NOTE | 2017-06-08 13:19 | PN ---
DATE: 06/08/17 SUBJECTIVE: The patient is lying in the bed with her head slightly elevated. She is able to answer questions a little more clearly today compared to yesterday. She states the pain in her right shoulder seems to be better today compared to yesterday. She is still not eating very well. We have given her some IV fluids overnight to help hydrate and help dilute the urine as specific treatment for a urinary tract infection initiated. The admitting nurse from [facility] is here today and will continue with her ongoing intake evaluation. OBJECTIVE: VITAL SIGNS: Afebrile. Pulse 62. Blood pressure 139/65. Pulse oximetry 99% on room air. She is mainly incontinent of urine, but has increased her intake with the help of the IVs overnight. Weight otherwise stable. ABDOMEN: Soft. EXTREMITIES: Still with a sling for the right arm from the distal right clavicle fracture with displacement noted. LUNGS: Otherwise clear. LABORATORY: Urine culture is still pending. Preliminary results show a gram positive cocci which could be an enterococcus which she has had in the past. Review of her past history does reveal repeat infections, many of which are enterococcus and Enterobacter species. She has had variable sensitivities in the past. She was started on a fluoroquinolone yesterday. The Enterobacter species seemed to be sensitive to the fluoroquinolones while the enterococcus is usually resistant. 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 To assist with adequate information regarding isolation procedures, an additional level of information regarding species and/or sensitivity is to be encouraged hopefully by in the morning. ASSESSMENT: 1. Acute fall from upright position, probably secondary to dizziness, yet may have also been contributed to by the underlying urinary tract infection, recurrent. 2. Acute fracture of the lateral aspect of the right clavicle with displacement of the fragments involved. 3. Significant disability and inability to safely care for herself with the patient at increased risk of falling and the family unable to adequately care for her at home and requiring ongoing rehabilitation and strengthening. 4. Chronic dementia with confusion present. 5. History of hypertension. 6. History of diabetes mellitus, on oral therapy. 7. History of coronary artery stenosis. 8. History of chronic atrial fibrillation. 9. History of frequent urinary tract infections, more recently enterococcus or Enterobacter species. 10. History of peripheral vascular disease. PLAN: Await further culture and sensitivity information in the morning. [facility] may be able to assist with ongoing rehabilitation as further information is noted. [facility] intake nurse does wish to have an orthopedic note on the chart describing the treatment options for this particular clavicle fracture. That will be obtained in the morning since Dr. Stephen, the orthopedic surgeon, is not in the hospital at this time. Reevaluate and anticipate transfer in the morning to [facility]. The family should be available hopefully to be able to help transport her in a private vehicle. Reevaluate in the morning. #[id number] [facility]
[2017-06-08] MEDS ORDERED: LINEZOLID IV 600 MG in PREMIX BAG 1 BAG IVPB SCH (15:30)
--- NOTE | 2017-06-08 15:44 | CONS ---
CHIEF COMPLAINT: Right upper extremity pain. HISTORY OF PRESENT ILLNESS: Ms. Delgado is a 81-year-old female with a history of dementia. Much of this history is having to be gained from chart notes. That said, Ms. Delgado presented to the Emergency Room after a fall and had some upper extremity pain. She additionally was noted to have a urinary tract infection and other issues which necessitated admission. I have been consulted to give my opinion on her upper extremity injury. PAST MEDICAL HISTORY: 1. Carotid artery stenosis. 2. Hyperlipidemia. 3. Hypertension. 4. Peripheral vascular disease. 5. Diabetes. 6. Dementia. 7. Atrial fibrillation. 8. Myocardial infarction. PAST SURGICAL HISTORY: 1. . 2. Hysterectomy. 3. Appendectomy. 4. Cataract removal. 5. Carpal tunnel release. 6. Femoral artery stent placement. MEDICATIONS: Please see nursing notes for a confirmed list. ALLERGIES: ATORVASTATIN, VANCOMYCIN, PENICILLIN. SOCIAL HISTORY: The patient does not drink, smoke or use any illicit drugs. FAMILY HISTORY: None pertinent to today's complaint. REVIEW OF SYSTEMS: Unable to fully obtain secondary to her dementia. PHYSICAL EXAMINATION: SKIN: Normal tone and turgor. MUSCULOSKELETAL: She has pain to palpation in the right shoulder. She has no significant deformity. There is a little bit of swelling. She is moving the hand and withdrawing it to painful stimuli. IMAGING: X-rays show a distal 1/3 fracture of the clavicle. There is slight displacement. ASSESSMENT: 1. Distal clavicle fracture. PLAN: The plan at this point is for her to continue with sling use if she will tolerate and utilize that. It is not absolutely necessary that she remain in the sling at all times and it is more for comfort purposes. She should probably have followup x-rays in about 2 weeks, although I do not believe she would be a surgical candidate. She does need to have monitoring of the skin over the dorsum of the shoulder just to ensure that skin integrity remains intact. If I can be of any further assistance, please do not hesitate to call. Thank you for allowing me to participate in this patient's care. #[id number] [facility]
[2017-06-08] MEDS: LINEZOLID IV 600 MG in PREMIX BAG 1 BAG IVPB SCH (18:00)
[2017-06-08] MEDS: PRAVASTATIN SODIUM 20 MG TAB PO SCH (21:57)
[2017-06-08] MEDS: HALOPERIDOL TAB 1 MG TAB PO SCH (21:57)
[2017-06-08] MEDS: OXYBUTYNIN CL 5 MG TAB PO SCH (21:58)
[2017-06-08] MEDS: KETOROLAC TROMETHAMINE INJ 30 MG/ML VIAL IV PRN (21:58)
[2017-06-08] MEDS: ZOLPIDEM TARTRATE 10 MG TAB PO SCH (21:58)
[2017-06-08] MEDS ORDERED: BENZONATATE PERLES 100 MG CAP PO PRN (22:42)
[2017-06-09] MEDS ORDERED: LINEZOLID IV 300 ML IVPB ONE (06:03)
[2017-06-09] MEDS: LINEZOLID IV 600 MG in PREMIX BAG 1 BAG IVPB SCH (06:17)
[2017-06-09] MEDS: OMEPRAZOLE CAP 20 MG CAP PO SCH (06:18)
[2017-06-09] MEDS: KETOROLAC TROMETHAMINE INJ 30 MG/ML VIAL IV PRN (06:43)
[2017-06-09] MEDS: INSULIN LISPRO 100 UNITS/ML PEN SUBCU SCH ×2 (07:03→12:04)
[2017-06-09] MEDS: METOPROLOL TARTRATE 50 MG TAB PO SCH (07:30)
[2017-06-09] MEDS: metFORMIN XR 500 MG TAB.ER.24 PO SCH (07:30)
[2017-06-09] MEDS: CLOPIDOGREL 75 MG TAB PO SCH (08:50)
[2017-06-09] MEDS: SPIRONOLACTONE 25 MG TAB PO SCH (08:50)
[2017-06-09 10:20] VITALS: TEMP 97.7
[2017-06-09] MEDS: SODIUM CHLORIDE 0.9% 1000ML 1,000 ML IVS PRN (10:41)
[2017-06-09] MEDS: glipiZIDE EXTENDED REL (XL) 2.5 MG TAB PO SCH (12:26)
[2017-06-09 14:31] VITALS: BP 166/78; O2SAT 98
--- NOTE | 2017-06-10 21:40 | DS ---
SUPERVISING PHYSICIAN: Sanjay Quigley M.D. DISCHARGE DIAGNOSIS: 1. Acute fall from upright position, probably secondary to dizziness, yet may have also been contributed to by the underlying urinary tract infection, recurrent. 2. Acute fracture of the lateral aspect of the right clavicle with displacement of the fragments involved. 3. Significant disability and inability to safely care for herself with the patient at increased risk of falling and the family unable to adequately care for her at home and requiring ongoing rehabilitation and strengthening. 4. Chronic dementia with confusion present. 5. History of hypertension. 6. History of diabetes mellitus, on oral therapy. 7. History of coronary artery stenosis. 8. History of chronic atrial fibrillation. 9. History of frequent urinary tract infections, more recently enterococcus or Enterobacter species. 10. History of peripheral vascular disease. HISTORY OF PRESENT ILLNESS: This is a 81 year-old female patient who came to the Emergency Room after she fell at home. She usually has a difficult time getting around and is mostly wheelchair bound, and occasionally uses her walker. She also has some visual imbalance problems as well as neuropathy. She also has some significant dementia. It was reported in the Emergency Room that she tripped and fell backwards and her caregiver was at least partially able to break the fall. There was no loss of consciousness. She had no altered mental status or change in mental status. She did come in complaining of her right shoulder hurting. The shoulder x-ray per radiology interpretation showed a fracture of the distal right clavicle with an inferior displacement of the distal fractured fragment. Chest x-ray per radiology interpretation shows a primary right hilum which appears unchanged with right basilar atelectasis. Her electrolytes were basically within normal limits. BUN was 34, creatinine 1.23. Liver enzymes were within normal limits. WBCs 9.2, hemoglobin 11.8, hematocrit 34. They were unable to get a urine specimen initially and she has a significant history of frequent urinary tract infections with resistant organisms, and she has been hospitalized several times for that. It is also reported that she lives with her son and he is out of town for today. I have called for admission to place the patient in Observation hopefully to get her into a rehabilitation facility. HOSPITAL COURSE: She was placed in Observation. Dr. Stephen, orthopedic surgeon, was consulted and he recommended that she continue with sling use and that that would be mostly for comfort purposes, and that he did not recommend that she be a surgical candidate. A urinalysis was eventually done. It showed positive for gram positive cocci, but they were unable to isolate any colonies. She was placed on Zyvox due to her previous frequent resistant urinary tract infections. She was accepted to [facility] for rehabilitation and because the urine culture could not be obtained for viable colonies, additional urine was obtained and it was basically within normal limits. Her preliminary urine culture showed no growth after 24 hours. I spoke with the admitting physician at [facility] and we discussed her case, and she accepted Ms. Delgado as a transfer. DISCHARGE PLAN: The patient will be discharged to [facility] rehab facility in [place]. She will continue her home medications as well as her Zyvox antibiotic. We will forward the urine cultures as they become available. Activity will be per [facility]. She will need to followup with Dr. Lafleur, her primary care provider, after she is discharged from that facility. She was sent with all of her labs and films as well as medical records from the hospital. DISCHARGE MEDICATIONS: 1. Metoprolol. 2. Lovastatin. 3. Omeprazole. 4. Glipizide. 5. Furosemide. 6. Metformin. 7. Oxybutynin. 8. Zolpidem. 9. Plavix. 10. Haldol. 11. Spironolactone. 12. Hydrocodone. 13. Zyvox. Dr. Quigley is the collaborating physician available for consultation. #[id number] [facility]
== END 2017-06-09 15:38 ==
LOC: ER 17:51 → UNDOADMOB 19:29 → MS 19:29
PROVIDERS: ADMIT Nurse Practitioner Acute Care; ATTEND Nurse Practitioner Acute Care
DX: S42.031A Displaced fracture of lateral end of right clavicle, initial encounter for closed fracture (principal); N39.0 Urinary tract infection, site not specified; B96.89 Other specified bacterial agents as the cause of diseases classified elsewhere; F03.90 Unspecified dementia, unspecified severity, without behavioral disturbance, psychotic disturbance, mood disturbance, and anxiety; E78.5 Hyperlipidemia, unspecified; I10 Essential (primary) hypertension; E11.40 Type 2 diabetes mellitus with diabetic neuropathy, unspecified; I25.10 Atherosclerotic heart disease of native coronary artery without angina pectoris; I48.2 Chronic atrial fibrillation; I73.9 Peripheral vascular disease, unspecified; I25.2 Old myocardial infarction; J98.11 Atelectasis; W01.0XXA Fall on same level from slipping, tripping and stumbling without subsequent striking against object, initial encounter; Y92.009 Unspecified place in unspecified non-institutional (private) residence as the place of occurrence of the external cause; Z79.02 Long term (current) use of antithrombotics/antiplatelets; Z79.84 Long term (current) use of oral hypoglycemic drugs; Z79.899 Other long term (current) drug therapy; Z88.0 Allergy status to penicillin; Z88.3 Allergy status to other anti-infective agents; Z88.8 Allergy status to other drugs, medicaments and biological substances
CPT/HCPCS: 36415 ×2; 36416 ×9; 71010; 73000; 73030; 80053; 81001 ×2; 82948 ×10; 83735; 85025; 87086 ×2; 94760 ×7; 96365; 96366; 96372 ×2; 96375; 96376; 97162; 97530 ×2; 99284; G0378; G8978; G8979; J1815; J1885 ×2; J2020; J7030 ×5

== ENCOUNTER → 2017-07-15 | Outpatient (CLI) | payer MEDICARE | END | disposition home or self-care (01) | LOC: BFHH 17:01 | PROVIDERS: ATTEND Family Medicine | DX: N39.0 Urinary tract infection, site not specified (principal); I10 Essential (primary) hypertension ==

== ENCOUNTER → 2017-07-30 | Outpatient (CLI) | payer MEDICARE | LOC: BFHH 14:56 | PROVIDERS: ATTEND Family Medicine | DX: N39.0 Urinary tract infection, site not specified (principal) ==

== ENCOUNTER → 2017-08-20 | Outpatient (CLI) | payer MEDICARE | END | disposition home or self-care (01) | LOC: SOLHO 16:25 | PROVIDERS: ATTEND Family Medicine | DX: N39.0 Urinary tract infection, site not specified (principal) ==

== ENCOUNTER → 2017-08-30 | Outpatient (CLI) | payer MEDICARE | END | disposition home or self-care (01) | LOC: SOLHO 15:35 | PROVIDERS: ATTEND Family Medicine | DX: N39.0 Urinary tract infection, site not specified (principal); Z87.440 Personal history of urinary (tract) infections ==

== ENCOUNTER → 2017-09-06 | Outpatient (CLI) | payer MEDICARE | END | disposition home or self-care (01) | LOC: SOLHH 16:54 | PROVIDERS: ATTEND Family Medicine | DX: L08.9 Local infection of the skin and subcutaneous tissue, unspecified (principal) ==